=== PATIENT | male | born 1950 | race Caucasian/White ===

== ENCOUNTER 2017-07-26 15:34 | Emergency (ER) | payer OTHER ==
--- NOTE | 2017-07-27 09:34 | CT ---
INDICATION: Near syncope three times with falls. No head injury. New onset of dizziness that caused him to sit down. CT HEAD WITHOUT CONTRAST: Serial contiguous 2.5 and 5-mm sections were obtained through the brain without contrast and revealed no shift of midline structures. The ventricles are slightly prominent, suggesting a minimal degree of central atrophy. There is suggestion of some very minimal decreased density in the periventricular white matter, especially on the right, raising question of minimal microvascular disease. This should be correlated clinically. Some very minimal calcification may be present in the internal carotid artery on the left. No bleeding site or hematoma was identified. Visualized paranasal sinuses and mastoid air cells were well aerated. IACs did not appear grossly asymmetrical. No definite cranial abnormality was seen. IMPRESSION: Question minimal microvascular disease with minimal internal carotid artery calcification. Other cause of leukoencephalopathy cannot be excluded. Report was called to Dr. Martinez at 1645 hours, 07/26/2017. Total Exam DLP = 949.36 mGy-cm. MTDD
--- NOTE | 2017-07-27 10:13 | ER ---
DATE SEEN: 07/26/2017 I spoke to his son, Franko Landeros who is a physician in [place], [place], and he noted that Den's brother had a CVA and atrial fibrillation and the only way they found the atrial fibrillation was by placing on a loop recorder. It is very possible that the patient may have arrhythmias. So, the Holter monitor maybe effective. The patient is to be seen by Dr. Nunn, Internal Medicine in [place] this next week and the patient's son would do well to mention that to Dr. Nunn and/or have his father mention that to Dr. Nunn. /[id number] 2019 [id number] LUIS FELIPE/RANGEL
--- NOTE | 2017-07-27 10:13 | ER ---
DATE SEEN: 07/26/2017 TIME SEEN: The patient was seen at 1535 hours. /[id number] 2010 [id number] LUIS FELIPE/RANGEL
--- NOTE | 2017-07-29 08:59 | ER ---
DATE SEEN: 07/26/2017 Patient seen at 1535 hours. CHIEF COMPLAINT: Dizziness. 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 He notes he came out from dinner, stood at the doorway and then felt dizzy, "the floor turned horizontal". He sat down, he did not feel well. He got up again and the floor went sideways again. At that point, he was then transferred to the hospital for further evaluation. He denies chest pain, palpitations, irregular heartbeat, but he experienced a fast heart rate and sweating when he experienced these symptoms of altered vision and sense of dizziness. He denies tinnitus, Meniere disease, or headaches. Denies head trauma. On 07/24/2017, he was seen by the son's rosy, who is a chiropractor, and he had some pain and discomfort in his forearm that went all the way down to his hand. She described it as a trigger band and treated it as such and he had relief of the symptoms. His at one time was a physician, , of breast cancer. Also, the patient was brought to the hospital by his boss, Nyla Montero, [facility]. His son is a physician in [place]. The patient denies fever; shortness of breath; cough; chest pain; neck stiffness; persistent lightheadedness; neck pressure; arm, jaw, or back pressure; abdominal discomfort; nausea; vomiting; diarrhea; constipation; blood in the stool; black tarry stool; frequency; urgency; dysuria; or reflux. Denies gallbladder disease. Denies urinary tract infection. He has nocturia 2 times a night. He denies swelling in his ankles. Denies any muscle aches or arthritis. Denies history of trauma, head injury, or seizures. Denies psychiatric history. Denies depression and anxiety. MEDICATIONS: 1. Sonata for sleep. 2. Nortriptyline for sleep and pain. 3. Multivitamins. 4. Vitamin D. 5. Oxybutynin for prostatism. 6. Buspirone 60 mg daily. 7. Avodart for prostatism, enlarged prostate. FAMILY HISTORY: His father had prostate cancer. Mother had idiopathic cardiomyopathy and had frequent echoes. PHYSICAL EXAMINATION: VITAL SIGNS: Blood pressure 148/74, heart rate 85, respirations 17, oxygen saturation 99%, and 36.3 degrees centigrade. GENERAL: The patient presents as a massively obese man with increased abdominal girth that is bulging. He does not have an overhang. Very prominent. He is unshaven. HEENT: PERRLA intact. Pharynx without abnormality. NECK: No thyromegaly or masses. No bruits. LUNGS: Clear without rales, rhonchi, or wheezes. HEART: S1, S2. No murmur. ABDOMEN: Soft, no hernia. No tenderness. No guarding. No rebound. No heel-tap rebound. LABORATORY DATA AND IMAGING: EKG, the patient has PACs, right bundle branch block, left anterior hemiblock, LVH, aVR and V1 inverted Ts. Troponins negative. D-dimer is negative. TSH 2.07, not abnormal. Urinalysis normal. Positive urine drug screen for tricyclics (he takes nortriptyline). Head CT was without abnormality. Chest x-ray negative. No cardiomegaly. ASSESSMENT AND PLAN: Lightheadedness, etiology indeterminate. The patient will need to have Holter monitor. Perhaps, he had arrhythmia, paroxysmal, and lightheadedness. He may be a set up for some cardiomyopathy that his mother had (she had idiopathic cardiomyopathy), since he, at 67 years old already, has a right bundle branch, left anterior hemiblock, left ventricular hypertrophy and premature atrial contractions. No evidence for myocardial infarction and CT of head did not demonstrate CVA or cause for his lightheadedness. The patient was dismissed. He should be hydrated. Advised to get Holter monitor tracings. No medications prescribed. Follow up with his doctor in a week. There are multiple granulomas in the lungs, but not significant. Plan, consider Holter monitor and discussion with his doctor. IF HIS SYMPTOMS DO NOT RELENT AND THERE ARE NO ABNORMALITIES ON THE HOLTER MONT[place] THEN CONSIDER FURTHER NEUROLOGICAL WORKUP AND MRI /[id number] 2010 [id number] LUIS FELIPE/RANGEL GR
--- NOTE | 2017-07-29 16:28 | CR ---
INDICATION: Near syncope. CHEST: Two frontal views of the chest were obtained AP and revealed the heart to be normal in size and shape. Overlying EKG leads are noted. The aorta is tortuous. A definite active infiltrate or effusion was not identified. IMPRESSION: No acute process. MTDD
== END 2017-07-26 18:02 | disposition home or self-care (01) ==
LOC: FB.ED 15:34
DX: R42 Dizziness and giddiness (principal); Z79.899 Other long term (current) drug therapy
CPT/HCPCS: 36415; 70450; 71045; 80053; 80305; 81001; 84443; 84484; 85025; 85379; 87804; 93005; 99285

== ENCOUNTER 2017-11-21 06:45 | Emergency (ER) | payer MEDICARE, OTHER ==
[2017-11-21] MEDS ORDERED: Sodium Chloride 0.9% 1,000 ML IV SCH (08:30)
--- NOTE | 2017-11-22 11:38 | CR ---
INDICATION: Weakness, tachycardia. CHEST: A single portable AP upright view of the chest was obtained 11/21/2017 and compared with 07/26/2017, revealing a prominent appearing heart emphasized by poor inspiration and AP positioning. Overlying EKG leads are noted. The aorta is tortuous with calcification in the arch. A definite active infiltrate or effusion was not identified. IMPRESSION: No definite acute process. MTDD
--- NOTE | 2017-11-24 11:13 | ER ---
DATE SEEN: 11/21/2017 HISTORY OF PRESENT ILLNESS: This 67-year-old man, 320 pounds, , lives alone, awoke this morning at 0300 hours with cold sweats, shortness of breath, and he had similar symptoms two years ago. A cardiovascular examination at that time was negative. This lasted through 0500 hours and recurrence at 0500 hours of more symptoms. On arrival at 0700 hours, the patient was noted to have mild diaphoresis. Slightly lightheaded. Denies chest pain. No heaviness in chest. Mild shortness of breath. No coughing. No history of traveling long distances. He has not been in bed. However, he traveled to the [facility] and back - 600 miles for a graduation of a family member, Wednesday and Wednesday, 11/19/2017 to 11/20/2017. The patient does not have a history of coagulopathy or VTE, nor does he have leg pain. PAST MEDICAL HISTORY: No history of hypertension. He has depression and sleep difficulties. Alcohol history negative. Smoking history negative. He had BPPV two months ago. I saw him and treated him in the ER successfully without complication. REVIEW OF SYSTEMS: Negative. 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 HEENT: Denies symptoms of sore throat, sinusitis, headache, or dental problems. CARDIORESPIRATORY: As above. No syncope or near syncope. No palpitations. But he notes his heart rate is fast. He is diaphoretic. No chest pain. GI: No blood in the stool, black tarry stool, constipation, diarrhea, reflux, gallbladder disease, pancreatitis, or hepatitis. : Denies frequency, urgency, or dysuria. MUSCULOSKELETAL: Negative. Denies arthritis or muscle aches. PSYCHIATRIC: Has depression and anxiety. MEDICATIONS: 1. Nortriptyline 150 mg daily. 2. Multivitamins. 3. Zaleplon (Sonata). 4. Oxybutynin (prostatism, although he denies prostatism or difficulty passing urine). 5. Buspirone 60 mg daily. 6. Avodart 0.5 mg daily (the latter suggests prostatism). ALLERGIES: Shellfish. PHYSICAL EXAMINATION: VITAL SIGNS: Heart rate 127, blood pressure 123/86, respirations 16, 95% oximetry on room air, temperature 36.6 degrees centigrade. GENERAL: The patient has mild diaphoresis. He is markedly obese man, who is intermittently sleeping. HEENT: PERRLA intact. Pharynx without abnormality. NECK: No thyromegaly or masses in the neck. No cervical adenopathy. No bruits. No tracheal tug. LUNGS: Clear without rales, rhonchi, or wheezes. HEART: S1, S2. No irregular rate or rhythm, but he does have a sinus tachycardia. ABDOMEN: Soft. No guarding. No rebound. There is marked increased abdominal girth with fatty overhang - massive obesity. SPINE: Cervical, thoracic, and lumbar spine nontender. No paraspinal muscle discomfort. LOWER EXTREMITIES: Mild tenderness. No vascular tenderness or abnormalities. No edema. NEUROLOGICAL: Deep tendon reflexes hypoactive, but present in upper and lower extremities. Cranial nerves 2 through 12 intact. Oriented x3. Strength intact. No pronator drift. No dysmetria. IMAGING DATA: Today's EKG, in comparison with EKG on July 26, 2017, he had Q-waves in lead II, 5 mm; lead III, 15 mm; and aVF, 10 mm. On today's EKG, there is a difference of a deeper Q-wave in lead II by delta 2; deeper in lead III, delta 0; aVF, delta 2; so in lead II and aVF, Q-waves are increased. ST elevation noted on 07/26/2017 was lead II zero, lead III 1 mm, aVF 1 mm. On today's EKG, ST elevation, no new changes, the ST elevation is 1 mm in lead II, lead III unchanged, lead aVF unchanged. Sinus tachycardia noted. Sinus tachycardia persisted throughout the ED course, even after 1000 mL of normal saline. LABORATORY DATA: Troponin less than 0.017 (normal). D-dimer normal at 0.33, and hemoglobin normal at 13.8, white count 8,900, PMNs 80, neutrophils are 80%, lymphocytes are 13%, monos 5%. Complete metabolic panel, sodium 140, potassium 4.2, chloride 106, CO2 of 22, BUN 21, creatinine 0.8. BUN and creatinine ratio elevated, suggesting dehydration, at 26. Glucose trace elevated at 126 and mild liver enzyme elevation, 33 AST, ALT 57, alkaline phosphatase low normal at 50. Remainder of complete metabolic panel is normal. Blood culture was asked for, but the laboratory helper stated that the blood cultures had to be sent to [facility] within an hour by special cab, and I felt that was not necessary. His lactic acid was 1.4. Urinalysis specific gravity was 1.030, suggests dehydration. Urine ketones 15, urobilinogen 1, few squamous cells, and few bacteria. ASSESSMENT: 1. Chest x-ray, mild cardiomegaly. 2. EKG suggestive of new deeper Q-waves in lead II and aVF and new ST elevation in lead II, compared to July changes, sinus tachycardia noted, left ventricular hypertrophy, right bundle-branch block with left anterior hemiblock. The latter is unchanged. To rule out coronary ischemia secondary to coronary artery disease. No evidence for STEMI or non-STEMI. 3. Massive obesity. 4. Sinus tachycardia, etiology indeterminate, TSH is pending. 5. No evidence for urinary tract infection. 6. Starvation induced ketosis in the urine. 7. Probable transaminasemia with fatty liver changes because of his extreme obesity. 8. Borderline glucose elevation. 9. Dehydration. The patient is flushed with fluids. I had strong feeling that he has a strong potential for vasospastic changes of coronary arteries. There is no evidence for myocardial infarction, but he has sinus tachycardia, persistent, did not resolve with hospitalization. Left ventricular hypertrophy, right bundle-branch block, left anterior hemiblock. New changes in the lead II, 1 mm elevation and also increased Q- wave changes, deepening Q-waves in the leads II and aVF. Because of this, I spoke to Dr. Freitas Genao, and the patient will be transferred and was accepted for further evaluation and cardiovascular evaluation. The patient was seen at 0700 hours. The delay in sending the patient was a function of his not being able to pass urine. It took him 3 1/2 hours to pass urine, even after a flush of fluids and even after multiple attempts. I did not want to send him to [place] without making sure that he did not have a urinary tract infection as the cause for his diaphoresis. /[id number] LUIS FELIPE/RANGEL
== END 2017-11-21 11:15 ==
LOC: FB.ED 06:45
DX: I51.7 Cardiomegaly (principal); E66.9 Obesity, unspecified; R00.0 Tachycardia, unspecified; E86.0 Dehydration; N40.0 Benign prostatic hyperplasia without lower urinary tract symptoms; Z79.899 Other long term (current) drug therapy; Z91.013 Allergy to seafood
CPT/HCPCS: 36415; 71045; 80053; 81001; 82272; 83605; 84443; 84484; 85025; 85379; 93005; 96360; 99285; J7030